=== PATIENT | female | born 1985 | race Two or more races ===

== ENCOUNTER 2018-02-21 23:42 | Emergency (ER) | payer OTHER ==
[~2018-02-21] VITALS: Ht 160 cm; Wt 81.6 kg
[2018-02-22] MEDS ORDERED: LIDOCAINE W/ EPINEPHRINE 1% 20ML VIAL ID ONE (00:45)
[2018-02-22] MEDS ORDERED: TETANUS-DIPTH-ACEL PERTUSSIS 0.5ML SYRG IM ONE (00:45)
[2018-02-22] MEDS ORDERED: SODIUM CHLORIDE 0.9% 1,000 ML IV ONE (00:45)
[2018-02-22] MEDS ORDERED: BACITRACIN TOP OINT 1 UD PKG TOP ONE (00:45)
[2018-02-22] MEDS ORDERED: ceFAZolin 1GM/50ML 50 ML IV ONE (03:00)
[2018-02-22] MEDS ORDERED: ceFAZolin 1GM VL ONE (03:16)
[2018-02-22 03:28] VITALS: BP 109/75
[2018-02-22] MEDS ORDERED: IBUPROFEN 600 MG TAB PO ONE (03:45)
== END 2018-02-22 03:57 | disposition home or self-care (01) ==
LOC: ER 23:42
DX: S01.81XA Laceration without foreign body of other part of head, initial encounter (principal); S01.511A Laceration without foreign body of lip, initial encounter; F12.10 Cannabis abuse, uncomplicated; W19.XXXA Unspecified fall, initial encounter; Y93.89 Activity, other specified; Y92.89 Other specified places as the place of occurrence of the external cause; Y99.8 Other external cause status
CPT/HCPCS: 12014; 82962; 90471; 90715; 96374; 99284; A6257; J0690; J7030